=== PATIENT | male | born 1995 | race Caucasian/White ===

== ENCOUNTER 2021-07-10 12:53 | Emergency (ER) | payer OTHER ==
[2021-07-10] MEDS: Bacitracin Oint 1 GM U/D Packet TOP ONE (13:15)
--- NOTE | 2021-07-10 13:47 | EDM.PDOC ---
ED HPI GENERAL MEDICAL PROBLEM - General Chief Complaint: Lower Extremity Injury/Pain Stated Complaint: Cut leg possible stitches Time Seen by Provider: 07/10/21 13:15 Source of Information: Reports: Patient History Limitations: Reports: No Limitations - History of Present Illness INITIAL COMMENTS - FREE TEXT/NARRATIVE: patient presented to the ER with a wound laceration to the left thigh. Reports he was using chain saw when this occurred. Came to the ER immediately. not sure about his tetanus. able to walk without problems. Onset: Sudden Duration: Minutes: (30) Location: Reports: Lower Extremity, Left Severity: Mild Improves with: Reports: None - Related Data Allergies Allergy/AdvReac Type Severity Reaction Status Date / Time No Known Allergies Allergy Verified 07/10/21 13:47 Home Meds: Home Meds NK [No Known Home Meds] 07/10/21 [History] Review of Systems - Review of Systems Review Of Systems: See Below Constitutional: Reports: No Symptoms Ears: Reports: No Symptoms Respiratory: Reports: No Symptoms Cardiovascular: Reports: No Symptoms GI/Abdominal: Reports: No Symptoms Musculoskeletal: Reports: No Symptoms Neurological: Reports: No Symptoms ED EXAM, GENERAL - Physical Exam Exam: See Below Exam Limited By: No Limitations General Appearance: Alert, WD/WN, No Apparent Distress Eye Exam: Bilateral Eye: EOMI, PERRL Head: Atraumatic Respiratory/Chest: No Respiratory Distress Cardiovascular: Normal Peripheral Pulses GI/Abdominal: Normal Bowel Sounds, Soft Neurological: Alert, Oriented Skin Exam: Other (there is a 5cm wound to the anterior of the left thigh) ED TRAUMA EXTREMITY PROCEDURES - Laceration/Wound Repair Left Anterior Thigh Lac/Wound Length In cm: 5 Appearance: Superficial, Linear Distal NVT: Neuro & Vascular Intact, No Tendon Injury Anesthetic Type: Local Local Anesthesia - Lidocaine (Xylocaine): 1% with EPI Local Anesthetic Volume: 5cc Skin Prep: Chlorhexidine (Hibiciens), Providone-Iodine (Betadine) Exploration/Debridement/Repair: Wound Explored, In a Bloodless Field Closed With: Sutures Suture Size: 4-0 # of Sutures: 6 Suture Type: Prolene Sterile Dressing Applied: Nurse Tetanus Status Addressed: Yes Complications: No Course - Re-Assessments/Exams Free Text/Narrative Re-Assessment/Exam: 07/10/21 13:45 wound was washed and cleaned suture closed - see procedure note tdap was given Departure - Departure Time of Disposition: 13:45 Disposition: Home, Self-Care 01 Condition: Good Clinical Impression: Laceration of thigh, left Qualifiers: Encounter type: initial encounter Qualified Code(s): S71.112A - Laceration without foreign body, left thigh, initial encounter - Discharge Information *PRESCRIPTION DRUG MONITORING PROGRAM REVIEWED*: Not Applicable *COPY OF PRESCRIPTION DRUG MONITORING REPORT IN PATIENT RAIMUNDO: Not Applicable Instructions: Laceration Care, Adult, [id number] - Problem List & Annotations (1) Laceration of thigh, left SNOMED Code(s): 664382858, [id number] Code(s): S71.112A - LACERATION WITHOUT FOREIGN BODY, LEFT THIGH, INIT ENCNTR Status: Acute Priority: Low Qualifiers: Encounter type: initial encounter Qualified Code(s): S71.112A - Laceration without foreign body, left thigh, initial encounter - Problem List Review Problem List Initiated/Reviewed/Updated: Yes - Assessment/Plan Plan: - keep wound dry and clean - always keep a clean dressing on - apply antibiotic ointment on the wound once daily - watch for signs of wound infection - follow up with clinic in 7-10 days for sutures removal - call or return to the ER if any signs of infection
[2021-07-10] MEDS: Diphtheria,Pertussis(Acell),Tetanus Vaccine 0.5 ML SDV IM ONE (13:52)
== END 2021-07-10 14:07 | disposition home or self-care (01) ==
LOC: LB.ED 12:53
DX: S71.112A Laceration without foreign body, left thigh, initial encounter (principal); Z23 Encounter for immunization; W31.2XXA Contact with powered woodworking and forming machines, initial encounter
CPT/HCPCS: 12002; 90471; 90715; 99282-25